=== PATIENT | male | born 1970 | race Caucasian/White ===

== ENCOUNTER → 2021-09-23 | Day surgery (SDC) | payer OTHER ==
[~2021-09-23] MED LIST: KETOROLAC TROMETHAMINE 30 MG/1 ML VIAL ONE; MIDAZOLAM HCL 2 MG/2 ML SINGLE DOSE VIAL ONE; PROPOFOL 20 ML ONE
== END | disposition home or self-care (01) ==
LOC: JASU-SURG 05:16
PROVIDERS: ATTEND Urology
DX: Z53.8 Procedure and treatment not carried out for other reasons (principal)